=== PATIENT | male | born 1980 | race Caucasian/White ===

== ENCOUNTER 2022-07-09 19:17 | Emergency (ER) | payer OTHER ==
[2022-07-09] MEDS ORDERED: Ibuprofen 800 MG TAB ONE (19:50)
[2022-07-09] MEDS ORDERED: methylPREDNISolone Sod Succ/PF 125 MG/2 ML VIAL ONE (19:50)
== END 2022-07-09 20:17 ==
LOC: MADERS 19:17
DX: M10.9 Gout, unspecified (principal); F17.210 Nicotine dependence, cigarettes, uncomplicated
CPT/HCPCS: 96372; 99283; J2930